=== PATIENT | female | born 1985 | race Hispanic/Latino ===

== ENCOUNTER 2022-02-15 15:56 | Outpatient (CLI) | payer MEDICAID, OTHER | END 2022-02-15 15:57 | disposition home or self-care (01) | LOC: MADRAD 15:56 | PROVIDERS: ATTEND Registered Nurse | DX: M25.571 Pain in right ankle and joints of right foot (principal) ==

== ENCOUNTER 2022-02-23 10:31 | Outpatient (CLI) | payer MEDICAID, OTHER | END 2022-02-23 10:32 | disposition home or self-care (01) | LOC: MADCT 10:31 | PROVIDERS: ATTEND Registered Nurse | DX: G44.019 Episodic cluster headache, not intractable (principal); R10.31 Right lower quadrant pain; R10.32 Left lower quadrant pain; R42 Dizziness and giddiness; K76.89 Other specified diseases of liver | CPT/HCPCS: 70450; 76700 ==

== ENCOUNTER 2022-03-07 10:46 | Outpatient (CLI) | payer MEDICAID | END 2022-03-07 10:47 | disposition home or self-care (01) | LOC: MADRAD 10:46 | PROVIDERS: ATTEND Registered Nurse | DX: R10.31 Right lower quadrant pain (principal); R10.32 Left lower quadrant pain | CPT/HCPCS: 76856 ==

== ENCOUNTER 2022-04-11 12:59 | Outpatient (CLI) | payer MEDICAID ==
[~2022-04-11 12:59] MED LIST: Iopamidol 370 76% 100 ML VIAL ONE
== END 2022-04-11 13:00 | disposition home or self-care (01) ==
LOC: MADCT 12:59
PROVIDERS: ATTEND Registered Nurse
DX: R10.84 Generalized abdominal pain (principal)
CPT/HCPCS: 74177; Q9967

== ENCOUNTER 2022-08-02 20:58 | Outpatient (CLI) | payer MEDICAID, OTHER | END 2022-08-02 20:59 | disposition home or self-care (01) | LOC: MADRAD 20:58 | PROVIDERS: ATTEND Registered Nurse | DX: M54.50 Low back pain, unspecified (principal); M47.816 Spondylosis without myelopathy or radiculopathy, lumbar region; M47.814 Spondylosis without myelopathy or radiculopathy, thoracic region | CPT/HCPCS: 72070; 72100 ==